=== PATIENT | male | born 1955 | race Caucasian/White ===

== ENCOUNTER 2021-10-10 09:14 | Emergency (ER) | payer BC, OTHER ==
[~2021-10-10] VITALS: Ht 167.6 cm; Wt 83.9 kg
[~2021-10-10 09:14] MED LIST: BENTYL 20 MG TA20 M1 PO; BLOOD PRESSURE; CARDIZEM LA240 M1 PO; CHOL MED; FOLVITE-D 1,001 EAC1 PO; THYROID
[2021-10-10 09:51] LABS: ABSOLUTE NEUTROPHILS 5.2 thou/uL (1.4-8.2); BASOPHILS 0.6 % (0.0-2.0); HEMATOCRIT 45.2 % (42.0-52.0); HEMOGLOBIN 15.2 gm/dL (14.0-18.0); LYMPHOCYTES 12.2 % (24.0-44.0); MCH 31.2 pg (26.0-34.0); MCHC 33.6 g/dL (28.0-37.0); MONOCYTES 7.1 % (1.0-8.0); PLATELET COUNT 186 thou/uL (150-400); POLYS 80.1 % (36.0-66.0); RBC 4.86 mil/uL (4.50-6.00); RDW 13.3 % (10.5-14.5); WBC 6.4 thou/uL (4.0-11.0)
[2021-10-10 09:59] LABS: CALCIUM 9.4 mg/dL (8.5-10.1); POTASSIUM 3.5 mmol/L (3.5-5.1)
[2021-10-10 10:09] LABS: ALBUMIN 2.9 g/dL (3.4-5.0); TOTAL BILIRUBIN 0.7 mg/dL (0.2-1.0); TOTAL PROTEIN 7.7 g/dL (6.4-8.2)
[2021-10-10] MEDS ORDERED: AUGMENTIN 875-1 EACH PO (11:55)
[2021-10-10 12:25] VITALS: BP 139/90
--- NOTE | 2021-10-11 10:29 | EKG ---
[address] [place] [address] ELECTROCARDIOGRAM REPORT Name: VERNON IBRAHIM Room #: [facility]#: [id number] Admission: 10/10/21 Attend Phys: Discharge: 10/10/21 Date of : 57 Report #: [id number] [facility] ED Test Date: 2021-10-10 Test Time: 09:45:19 Pat Name: VERNON IBRAHIM Department: Room: Gender: M Retail Store Clerk: : [id number] Requested By: Everardo Robles Order Number: [id number] MD: Adán Keyes Measurements Intervals [place] Rate: 112 P: 32 SD: 107 QRS: -26 QRSD: 97 T: -17 QT: 331 QTc: 452 Interpretive Statements Sinus tachycardia Borderline left axis deviation RSR' in V1 or V2, probably normal variant Nonspecific T abnormalities, inferior leads Baseline wander in lead(s) II,III,aVF,V4 No previous ECG available for comparison Electronically Signed On 10-11-2021 10:28:58 [employer] by Adán Keyes [email or web address] <ELECTRONICALLY SIGNED> By: Adán Keyes MD, [facility] 10/11/21 1028 0945 0945 Adán Keyes MD, [facility] /EPI
== END 2021-10-10 12:25 | disposition home or self-care (01) ==
LOC: ER 09:14
PROVIDERS: Emergency Medicine
DX: U07.1 COVID-19 (principal); J12.82 Pneumonia due to coronavirus disease 2019; I10 Essential (primary) hypertension; E78.00 Pure hypercholesterolemia, unspecified; Z79.899 Other long term (current) drug therapy